=== PATIENT | female | born 1970 | race African-American/Black ===

== ENCOUNTER 2017-05-21 23:21 | Inpatient (IN) ==
[2017-05-22] MEDS ORDERED: methylPREDNISolone SOD SUC 125 MG/2 ML VIAL IV STA (00:11)
[2017-05-22] MEDS ORDERED: FAMOTIDINE 20 MG/2 ML VIAL IV STA (00:11)
[2017-05-22 00:46] LABS: Basophils # 0.1 10*3/uL (0.0-0.2); Basophils % 0.8 % (0.0-0.8); Eosinophils # 0.4 10*3/uL (0.0-0.87); Hematocrit 28.8 VOL% (35.7-47.0); Hemoglobin 8.7 GM/DL (12.0-16.0); Immature Granulocytes % 0.4 %; Immature Granulocytes Absolute 0.03 #; Lymphocytes # 3.2 10*3/uL (1.4-4.0); Lymphocytes % 44.2 % (21.3-54.2); Mean Corpuscular HGB Conc 30.2 GM/DL (32-36); Mean Corpuscular Hemoglobin 24 PG (27-34); Mean Corpuscular Volume 79.8 FL (87-102); Mean Platelet Volume 10.6 FL (9.6-12.0); Monocytes # 0.7 10*3/uL (0.11-0.8); Monocytes % 9.6 % (1.7-12.7); Neutrophils # 2.8 10*3/uL (1.4-7.4); Platelet Count 290 T/CUMM (130-400); Red Blood Count 3.61 MC/CUMM (3.8-5.5); Red Cell Distribution Width 15.3 % (9.3-17.3); White Blood Count 7.2 T/CUMM (4-12)
[2017-05-22 00:53] LABS: INR 0.9; PT Patient Result 9.8 SECS; Partial Thromboplastin Time 21.8 SECS (0-40)
[2017-05-22] MEDS ORDERED: LORazepam 2 MG/1 ML VIAL IV STA (00:55)
[2017-05-22] MEDS ORDERED: FAMOTIDINE 20 MG/2 ML VIAL IV ONE (01:01)
[2017-05-22] MEDS ORDERED: methylPREDNISolone SOD SUC 125 MG/2 ML VIAL ONE (01:01)
[2017-05-22] MEDS ORDERED: LORazepam 2 MG/1 ML VIAL ONE (01:01)
[2017-05-22 01:07] LABS: Alanine Aminotransferase 16 U/L (13-56); Albumin 3.4 G/DL (3.4-5.0); Alkaline Phosphatase 65 U/L (45-117); Aspartate Amino Transferase 23 U/L (0-37); Bilirubin,Total < 0.39 MG/DL (0.2-1.0); Blood Urea Nitrogen 8 MG/DL (7-18); Calcium 8.3 MG/DL (8.5-10.1); Glucose 109 MG/DL (74-106); Osmolality,Calculated 277.4 MOS/KG (273-304); Potassium 3.9 MMOL/L (3.5-5.1); Sodium 140 MMOL/L (136-145); Total Protein 7.4 G/DL (6.4-8.3); Troponin I Only 0.041 NG/ML (0.00-0.045)
[2017-05-22] MEDS ORDERED: ASPIRIN EC 325 MG TABLET PO STA (01:18)
[2017-05-22 01:20] LABS: Apearance,Urine Slightly Hazy (Clear); Bilirubin,Urine Negative (Negative); Blood, Urine Negative (Negative); Glucose,Urine (UA) Negative (Negative); Hyaline Casts,Urine 4 /LPF (0-3); Ketones,Urine Negative (Negative); Mucus,Urine Few /LPF (Occasional); Nitrite,Urine Negative (Negative); Protein,Urine Negative; RBC,Urine 4 /HPF (0-4); Squamous Epithelial Cell,Urine Occasional /HPF (0-10); Urine Color Yellow (Yellow); Urine Specific Gravity 1.015 (1.001-1.035); Urine Urobilinogen < 2.0 EU/DL (0.2-1.0); WBC,Urine 51 /HPF (0-6)
[2017-05-22 02:29] LABS: Barbiturates Screen,Urine Negative (Negative); Benzodiazepines Screen,Urine Negative (Negative); Cannabinoid Screen,Urine Negative (Negative); Opiate Screen,Urine Negative (Negative); Phencyclidine Screen,Urine Negative (Negative)
[2017-05-22] MEDS ORDERED: LABETALOL 20 MG/4 ML SYRINGE IV PRN (02:47)
[2017-05-22] MEDS ORDERED: ONDANSETRON 4 MG/2 ML VIAL IV PRN (03:14)
[2017-05-22] MEDS: SODIUM CHLORIDE 0.9% 1,000 ML IV SCH (04:55)
[2017-05-22] MEDS: LEVOFLOXACIN INJ 750 MG in PREMIX 1 EACH IV SCH (04:55)
[2017-05-22 05:35] LABS: Risk Ratio 5.17; VLDL CHOLESTEROL 32.8 MG/DL
[2017-05-22] MEDS ORDERED: ASPIRIN 325 MG TABLET PO SCH (09:00)
[2017-05-22] MEDS: PANTOPRAZOLE 40 MG VIAL IV SCH (11:12)
[2017-05-22] MEDS: ENOXAPARIN 40 MG/0.4 ML SYRINGE SUBCUT SCH (11:13)
[2017-05-23] MEDS: SODIUM CHLORIDE 0.9% 1,000 ML IV SCH ×3 (00:16→20:33)
[2017-05-23] MEDS: LEVOFLOXACIN INJ 750 MG in PREMIX 1 EACH IV SCH (04:55)
[2017-05-23 06:02] LABS: Basophils % 0.2 % (0.0-0.8); Eosinophils % 0.2 % (0.00-10.9); Hemoglobin 7.8 GM/DL (12.0-16.0); Immature Granulocytes % 0.3 %; Immature Granulocytes Absolute 0.03 #; Lymphocytes # 2.9 10*3/uL (1.4-4.0); Lymphocytes % 29.7 % (21.3-54.2); Mean Corpuscular HGB Conc 31.2 GM/DL (32-36); Mean Corpuscular Hemoglobin 24 PG (27-34); Mean Corpuscular Volume 77.4 FL (87-102); Mean Platelet Volume 10.3 FL (9.6-12.0); Monocytes # 0.9 10*3/uL (0.11-0.8); Monocytes % 9.1 % (1.7-12.7); Neutrophils # 5.9 10*3/uL (1.4-7.4); Neutrophils % 60.5 % (38.7-73.9); Platelet Count 257 T/CUMM (130-400); Red Blood Count 3.23 MC/CUMM (3.8-5.5); Red Cell Distribution Width 15.5 % (9.3-17.3); White Blood Count 9.7 T/CUMM (4-12)
[2017-05-23 06:26] LABS: Osmolality,Calculated 283.1 MOS/KG (273-304); Potassium 3.9 MMOL/L (3.5-5.1)
[2017-05-23] MEDS: PANTOPRAZOLE 40 MG VIAL IV SCH (08:14)
[2017-05-23] MEDS: ASPIRIN 325 MG TABLET PO SCH (08:14)
[2017-05-23] MEDS: ENOXAPARIN 40 MG/0.4 ML SYRINGE SUBCUT SCH (08:14)
[2017-05-23] MEDS: SPIRONOLACTONE 25 MG TABLET PO SCH (09:54)
[2017-05-23] MEDS: LOSARTAN 25 MG TABLET PO SCH (09:54)
[2017-05-23] MEDS: CARVEDILOL 3.125 MG TABLET PO SCH (21:33)
[2017-05-24 05:19] LABS: Basophils % 0.5 % (0.0-0.8); Eosinophils # 0.1 10*3/uL (0.0-0.87); Eosinophils % 1.4 % (0.00-10.9); Hematocrit 24.6 VOL% (35.7-47.0); Hemoglobin 7.5 GM/DL (12.0-16.0); Immature Granulocytes % 0.3 %; Immature Granulocytes Absolute 0.02 #; Lymphocytes # 4.3 10*3/uL (1.4-4.0); Lymphocytes % 55.2 % (21.3-54.2); Mean Corpuscular HGB Conc 30.5 GM/DL (32-36); Mean Corpuscular Hemoglobin 24 PG (27-34); Mean Corpuscular Volume 77.1 FL (87-102); Mean Platelet Volume 10.1 FL (9.6-12.0); Monocytes # 0.6 10*3/uL (0.11-0.8); Monocytes % 7.8 % (1.7-12.7); Neutrophils # 2.7 10*3/uL (1.4-7.4); Neutrophils % 34.8 % (38.7-73.9); Platelet Count 262 T/CUMM (130-400); Red Blood Count 3.19 MC/CUMM (3.8-5.5); Red Cell Distribution Width 15.3 % (9.3-17.3); White Blood Count 7.8 T/CUMM (4-12)
[2017-05-24] MEDS: LEVOFLOXACIN INJ 750 MG in PREMIX 1 EACH IV SCH (05:39)
[2017-05-24 05:52] LABS: Calcium 7.9 MG/DL (8.5-10.1); Osmolality,Calculated 282.1 MOS/KG (273-304); Potassium 3.9 MMOL/L (3.5-5.1)
[2017-05-24 05:53] LABS: Band Neutrophils 1 % (0-10); Eosinophils 1 % (0-10); Hypochromasia 1+; Lymphocytes 55 % (20-55); Metamyelocytes 1 %; Microcytosis 1+; Ovalocytes Slight; Platelet Estimate Normal; Segmented Neutrophils 38 % (50-85); Total Cells Counted 100
[2017-05-24] MEDS: CARVEDILOL 3.125 MG TABLET PO SCH ×2 (08:58→17:48)
[2017-05-24] MEDS: LOSARTAN 25 MG TABLET PO SCH (08:58)
[2017-05-24] MEDS: ENOXAPARIN 40 MG/0.4 ML SYRINGE SUBCUT SCH (08:58)
[2017-05-24] MEDS: ASPIRIN 325 MG TABLET PO SCH (08:58)
[2017-05-24] MEDS: SPIRONOLACTONE 25 MG TABLET PO SCH (08:58)
[2017-05-24] MEDS: PANTOPRAZOLE 40 MG VIAL IV SCH (08:58)
[2017-05-24] MEDS: PANTOPRAZOLE 40 MG TABLET PO SCH (11:24)
[2017-05-25] MEDS: SODIUM CHLORIDE 0.9% 1,000 ML IV SCH ×2 (00:15→00:16)
[2017-05-25] MEDS: LEVOFLOXACIN INJ 750 MG in PREMIX 1 EACH IV SCH (06:01)
[2017-05-25] MEDS ORDERED: SODIUM CHLORIDE 0.9% 1,000 ML IV PRN (07:48)
[2017-05-25 09:01] LABS: Basophils % 0.3 % (0.0-0.8); Eosinophils # 0.2 10*3/uL (0.0-0.87); Eosinophils % 2.8 % (0.00-10.9); Hematocrit 24.2 VOL% (35.7-47.0); Hemoglobin 7.5 GM/DL (12.0-16.0); Immature Granulocytes % 0.5 %; Immature Granulocytes Absolute 0.03 #; Lymphocytes # 3.2 10*3/uL (1.4-4.0); Mean Corpuscular Hemoglobin 24 PG (27-34); Mean Corpuscular Volume 78.3 FL (87-102); Mean Platelet Volume 10.8 FL (9.6-12.0); Monocytes # 0.6 10*3/uL (0.11-0.8); Neutrophils # 1.9 10*3/uL (1.4-7.4); Neutrophils % 32.4 % (38.7-73.9); Platelet Count 271 T/CUMM (130-400); Red Blood Count 3.09 MC/CUMM (3.8-5.5); Red Cell Distribution Width 15.4 % (9.3-17.3)
[2017-05-25] MEDS: ENOXAPARIN 40 MG/0.4 ML SYRINGE SUBCUT SCH (09:07)
[2017-05-25] MEDS ORDERED: LEVOFLOXACIN 750 MG TABLET PO ONE (09:09)
[2017-05-25] MEDS: CARVEDILOL 3.125 MG TABLET PO SCH ×2 (09:14→17:42)
[2017-05-25] MEDS: SPIRONOLACTONE 25 MG TABLET PO SCH (09:15)
[2017-05-25] MEDS: ASPIRIN 325 MG TABLET PO SCH (09:15)
[2017-05-25] MEDS: LOSARTAN 25 MG TABLET PO SCH (09:15)
[2017-05-25] MEDS: PANTOPRAZOLE 40 MG TABLET PO SCH (09:15)
[2017-05-25 09:24] LABS: Eosinophils 2 % (0-10); Giant Platelets Few; Hypochromasia 1+; Lymphocytes 54 % (20-55); Microcytosis Slight; Ovalocytes Slight; Platelet Estimate Adequate; Segmented Neutrophils 30 % (50-85); Total Cells Counted 100
[2017-05-25] MEDS ORDERED: SODIUM CHLORIDE 0.9% 1,000 ML IV SCH (09:30)
[2017-05-25] MEDS: LEVOFLOXACIN 750 MG TABLET PO SCH (12:35)
[2017-05-25] MEDS ORDERED: diphenhydrAMINE CAP 25 MG CAPSULE PO ONE (15:04)
[2017-05-25] MEDS ORDERED: methylPREDNISolone SOD SUC 40 MG/1 ML VIAL IV ONE (15:05)
[2017-05-25 17:05] LABS: Hematocrit 29.9 VOL% (35.7-47.0)
[2017-05-25 17:09] LABS: Hemoglobin 9.4 GM/DL (12.0-16.0)
[2017-05-26 08:05] VITALS: BP 133/62
[2017-05-26] MEDS: ASPIRIN 325 MG TABLET PO SCH (09:43)
[2017-05-26] MEDS: CARVEDILOL 3.125 MG TABLET PO SCH (09:43)
[2017-05-26] MEDS: PANTOPRAZOLE 40 MG TABLET PO SCH (09:44)
[2017-05-26] MEDS: SPIRONOLACTONE 25 MG TABLET PO SCH (09:44)
[2017-05-26] MEDS: LOSARTAN 25 MG TABLET PO SCH (09:44)
[2017-05-26] MEDS: ENOXAPARIN 40 MG/0.4 ML SYRINGE SUBCUT SCH (09:44)
[2017-05-26] MEDS: LEVOFLOXACIN 750 MG TABLET PO SCH (09:44)
== END 2017-05-26 10:57 | disposition home or self-care (01) | DRG 880 ==
LOC: EDBD → EDUNIT# → N.ED 23:21 → N.EDINP 05-22 02:45 → N.TELEN 05-22 03:54

== ENCOUNTER 2017-10-04 20:23 | Inpatient (IN) ==
[2017-10-04] MEDS ORDERED: ASPIRIN 300 MG SUPP RECTAL STA (20:51)
[2017-10-04] MEDS ORDERED: ONDANSETRON 4 MG/2 ML VIAL IV STA (20:51)
[2017-10-04] MEDS ORDERED: LABETALOL 20 MG/4 ML SYRINGE IV STA (20:51)
[2017-10-04] MEDS ORDERED: LABETALOL 20 MG/4 ML SYRINGE IV PRN (21:13)
[2017-10-04] MEDS ORDERED: ALTEPLASE 9 MG in PREMIX 1 EACH IV ONE (21:13)
[2017-10-04] MEDS ORDERED: niCARdipine INJ 25 MG in SODIUM CHLORIDE 0.9% 240 ML IV PRN (21:13)
[2017-10-04] MEDS ORDERED: ALTEPLASE 81 MG in PREMIX 1 EACH IV ONE (21:13)
[2017-10-04 21:17] LABS: Basophils # 0.1 10*3/uL (0.0-0.2); Basophils % 0.4 % (0.0-0.8); Eosinophils # 0.3 10*3/uL (0.0-0.87); Eosinophils % 2.9 % (0.00-10.9); Hematocrit 26.6 VOL% (35.7-47.0); Immature Granulocytes % 0.4 %; Immature Granulocytes Absolute 0.04 #; Lymphocytes # 3.9 10*3/uL (1.4-4.0); Lymphocytes % 34.6 % (21.3-54.2); Mean Corpuscular HGB Conc 30.1 GM/DL (32-36); Mean Corpuscular Hemoglobin 24 PG (27-34); Mean Corpuscular Volume 80.4 FL (87-102); Mean Platelet Volume 10.3 FL (9.6-12.0); Monocytes % 8.9 % (1.7-12.7); Neutrophils # 5.9 10*3/uL (1.4-7.4); Neutrophils % 52.8 % (38.7-73.9); Platelet Count 299 T/CUMM (130-400); Red Blood Count 3.31 MC/CUMM (3.8-5.5); Red Cell Distribution Width 15.7 % (9.3-17.3); White Blood Count 11.3 T/CUMM (4-12)
[2017-10-04 21:26] LABS: PT Patient Result 10.2 SECS; Partial Thromboplastin Time 23.8 SECS (0-40)
[2017-10-04 21:30] LABS: Alanine Aminotransferase 12 U/L (13-56); Albumin 3.4 G/DL (3.4-5.0); Alkaline Phosphatase 60 U/L (45-117); Aspartate Amino Transferase 23 U/L (0-37); Bilirubin,Total < 0.39 MG/DL (0.2-1.0); Blood Urea Nitrogen 10 MG/DL (7-18); Calcium 8.5 MG/DL (8.5-10.1); Glucose 99 MG/DL (74-106); Potassium 3.8 MMOL/L (3.5-5.1); Sodium 143 MMOL/L (136-145); Total Protein 7.7 G/DL (6.4-8.3)
[2017-10-04 21:45] LABS: Apearance,Urine Slightly Hazy (Clear); Bacteria,Urine Occasional /HPF (Few); Bilirubin,Urine Negative (Negative); Blood, Urine Negative (Negative); Glucose,Urine (UA) Negative (Negative); Ketones,Urine Negative (Negative); Mucus,Urine Few /LPF (Occasional); Nitrite,Urine Negative (Negative); Protein,Urine Negative; RBC,Urine 5 /HPF (0-4); Squamous Epithelial Cell,Urine Occasional /HPF (0-10); Urine Color Yellow (Yellow); Urine Specific Gravity 1.018 (1.001-1.035); Urine Urobilinogen < 2.0 EU/DL (0.2-1.0); WBC,Urine 23 /HPF (0-6)
[2017-10-04 21:51] LABS: Barbiturates Screen,Urine Negative (Negative); Benzodiazepines Screen,Urine Negative (Negative); Cannabinoid Screen,Urine Negative (Negative); Opiate Screen,Urine Negative (Negative); Phencyclidine Screen,Urine Negative (Negative)
[2017-10-04] MEDS ORDERED: ONDANSETRON 4 MG/2 ML VIAL IV PRN (23:41)
[2017-10-04] MEDS ORDERED: ALBUTEROL 2.5 MG/3 ML NEB RESP TX PRN (23:41)
[2017-10-05] MEDS: SODIUM CHLORIDE 0.9% 1,000 ML IV SCH ×2 (01:30→23:14)
[2017-10-05] MEDS: LEVOFLOXACIN INJ 250 MG in PREMIX 1 EACH IV SCH ×2 (02:35→23:57)
[2017-10-05] MEDS: PANTOPRAZOLE 40 MG VIAL IV SCH (08:49)
[2017-10-05] MEDS: MORPHINE 4 MG/1 ML VIAL IV PRN ×2 (17:09→23:56)
[2017-10-05] MEDS: CYCLOBENZAPRINE 10 MG TABLET PO PRN (18:51)
[2017-10-05] MEDS: TOPIRAMATE 25 MG TABLET PO SCH (21:35)
[2017-10-05] MEDS: GABAPENTIN 300 MG CAPSULE PO SCH (21:35)
[2017-10-05 23:14] LABS: Basophils % 0.4 % (0.0-0.8); Eosinophils # 0.3 10*3/uL (0.0-0.87); Eosinophils % 3.4 % (0.00-10.9); Hematocrit 24.6 VOL% (35.7-47.0); Hemoglobin 7.3 GM/DL (12.0-16.0); Immature Granulocytes % 0.4 %; Immature Granulocytes Absolute 0.03 #; Lymphocytes % 38.9 % (21.3-54.2); Mean Corpuscular HGB Conc 29.7 GM/DL (32-36); Mean Corpuscular Hemoglobin 24 PG (27-34); Mean Corpuscular Volume 80.4 FL (87-102); Mean Platelet Volume 9.7 FL (9.6-12.0); Monocytes # 0.7 10*3/uL (0.11-0.8); Monocytes % 8.9 % (1.7-12.7); Neutrophils # 3.7 10*3/uL (1.4-7.4); Platelet Count 253 T/CUMM (130-400); Red Blood Count 3.06 MC/CUMM (3.8-5.5); Red Cell Distribution Width 15.8 % (9.3-17.3); White Blood Count 7.7 T/CUMM (4-12)
[2017-10-05] MEDS ORDERED: ASPIRIN 300 MG SUPP RECTAL SCH (23:48)
[2017-10-05 23:49] LABS: Calcium 8.5 MG/DL (8.5-10.1); Potassium 3.5 MMOL/L (3.5-5.1)
[2017-10-05 23:51] LABS: Risk Ratio 3.41; VLDL CHOLESTEROL 29.8 MG/DL
[2017-10-05] MEDS: ASPIRIN 325 MG TABLET PO SCH (23:55)
[2017-10-06] MEDS: GABAPENTIN 300 MG CAPSULE PO SCH ×2 (08:27→21:16)
[2017-10-06] MEDS: CLOPIDOGREL 75 MG TABLET PO SCH (08:27)
[2017-10-06] MEDS: ASPIRIN 325 MG TABLET PO SCH (08:28)
[2017-10-06] MEDS: PANTOPRAZOLE 40 MG VIAL IV SCH (08:28)
[2017-10-06] MEDS: TOPIRAMATE 25 MG TABLET PO SCH ×2 (08:28→21:16)
[2017-10-06] MEDS: MORPHINE 4 MG/1 ML VIAL IV PRN ×4 (09:05→23:29)
[2017-10-06] MEDS: PANTOPRAZOLE 40 MG TABLET PO SCH (14:04)
[2017-10-06] MEDS: ERYTHROMYCIN 0.5% OPHT OINT 1 GM TUBE LEFT EYE SCH ×3 (15:22→21:15)
[2017-10-06] MEDS: SODIUM CHLORIDE 0.9% 1,000 ML IV SCH ×2 (17:38→23:28)
[2017-10-06] MEDS: CYCLOBENZAPRINE 10 MG TABLET PO PRN (23:31)
[2017-10-06] MEDS: LEVOFLOXACIN INJ 250 MG in PREMIX 1 EACH IV SCH (23:35)
[2017-10-07] MEDS ORDERED: ACETAMINOPHEN 325 MG TABLET PO PRN (02:03)
[2017-10-07] MEDS: MORPHINE 4 MG/1 ML VIAL IV PRN ×3 (04:45→20:18)
[2017-10-07 06:16] LABS: Basophils % 0.6 % (0.0-0.8); Eosinophils # 0.3 10*3/uL (0.0-0.87); Eosinophils % 3.8 % (0.00-10.9); Hematocrit 24.2 VOL% (35.7-47.0); Hemoglobin 7.2 GM/DL (12.0-16.0); Immature Granulocytes % 0.4 %; Immature Granulocytes Absolute 0.03 #; Lymphocytes # 3.2 10*3/uL (1.4-4.0); Lymphocytes % 45.6 % (21.3-54.2); Mean Corpuscular HGB Conc 29.8 GM/DL (32-36); Mean Corpuscular Hemoglobin 24 PG (27-34); Mean Corpuscular Volume 81.5 FL (87-102); Mean Platelet Volume 10.7 FL (9.6-12.0); Monocytes # 0.6 10*3/uL (0.11-0.8); Monocytes % 9.1 % (1.7-12.7); Neutrophils # 2.8 10*3/uL (1.4-7.4); Neutrophils % 40.5 % (38.7-73.9); Platelet Count 288 T/CUMM (130-400); Red Blood Count 2.97 MC/CUMM (3.8-5.5); Red Cell Distribution Width 15.6 % (9.3-17.3); White Blood Count 6.9 T/CUMM (4-12)
[2017-10-07 06:40] LABS: Calcium 8.8 MG/DL (8.5-10.1); Osmolality,Calculated 280.1 MOS/KG (273-304); Potassium 3.5 MMOL/L (3.5-5.1)
[2017-10-07] MEDS ORDERED: SODIUM CHLORIDE 0.9% 1,000 ML IV PRN (08:24)
[2017-10-07] MEDS: ERYTHROMYCIN 0.5% OPHT OINT 1 GM TUBE LEFT EYE SCH ×4 (09:48→20:08)
[2017-10-07] MEDS: TOPIRAMATE 25 MG TABLET PO SCH ×2 (10:09→20:17)
[2017-10-07] MEDS: ASPIRIN 325 MG TABLET PO SCH (10:09)
[2017-10-07] MEDS: CLOPIDOGREL 75 MG TABLET PO SCH (10:09)
[2017-10-07] MEDS: PANTOPRAZOLE 40 MG TABLET PO SCH (10:09)
[2017-10-07] MEDS: GABAPENTIN 300 MG CAPSULE PO SCH ×2 (10:09→20:17)
[2017-10-07] MEDS: ATORVASTATIN 40 MG TABLET PO SCH (20:17)
[2017-10-07] MEDS: CYCLOBENZAPRINE 10 MG TABLET PO PRN (20:18)
[2017-10-07] MEDS: SODIUM CHLORIDE 0.9% 1,000 ML IV SCH ×2 (20:24→20:25)
[2017-10-08] MEDS: MORPHINE 4 MG/1 ML VIAL IV PRN ×3 (05:35→19:07)
[2017-10-08 05:52] LABS: Basophils % 0.4 % (0.0-0.8); Eosinophils # 0.3 10*3/uL (0.0-0.87); Eosinophils % 4.5 % (0.00-10.9); Hematocrit 24.4 VOL% (35.7-47.0); Hemoglobin 7.5 GM/DL (12.0-16.0); Immature Granulocytes % 0.3 %; Immature Granulocytes Absolute 0.02 #; Lymphocytes # 2.7 10*3/uL (1.4-4.0); Lymphocytes % 40.8 % (21.3-54.2); Mean Corpuscular HGB Conc 30.7 GM/DL (32-36); Mean Corpuscular Hemoglobin 25 PG (27-34); Mean Corpuscular Volume 79.7 FL (87-102); Mean Platelet Volume 10.3 FL (9.6-12.0); Monocytes # 0.6 10*3/uL (0.11-0.8); Monocytes % 9.4 % (1.7-12.7); Neutrophils % 44.6 % (38.7-73.9); Platelet Count 276 T/CUMM (130-400); Red Blood Count 3.06 MC/CUMM (3.8-5.5); Red Cell Distribution Width 15.6 % (9.3-17.3); White Blood Count 6.7 T/CUMM (4-12)
[2017-10-08 06:21] LABS: Calcium 8.2 MG/DL (8.5-10.1); Potassium 3.5 MMOL/L (3.5-5.1)
[2017-10-08 08:59] LABS: % Iron Saturation 5.4 % (18-50); Ferritin 5.4 ng/ml (8-252)
[2017-10-08 09:27] LABS: Folate 7.8 NG/ML (5.4-24.0)
[2017-10-08] MEDS: ERYTHROMYCIN 0.5% OPHT OINT 1 GM TUBE LEFT EYE SCH ×3 (10:13→16:15)
[2017-10-08] MEDS: CLOPIDOGREL 75 MG TABLET PO SCH (10:18)
[2017-10-08] MEDS: ASPIRIN 325 MG TABLET PO SCH (10:18)
[2017-10-08] MEDS: GABAPENTIN 300 MG CAPSULE PO SCH ×2 (10:18→21:32)
[2017-10-08] MEDS: PANTOPRAZOLE 40 MG TABLET PO SCH (10:18)
[2017-10-08] MEDS: LOSARTAN 25 MG TABLET PO SCH (10:19)
[2017-10-08] MEDS: TOPIRAMATE 25 MG TABLET PO SCH ×2 (10:19→21:32)
[2017-10-08] MEDS: CARVEDILOL 3.125 MG TABLET PO SCH ×2 (10:19→21:32)
[2017-10-08] MEDS: POLYETHYLENE GLYCOL POWDER 17 GM PACK PO SCH (13:08)
[2017-10-08] MEDS: FERROUS SULFATE 325 MG TABLET PO SCH ×2 (13:08→21:32)
[2017-10-08] MEDS: SODIUM CHLORIDE 0.9% 1,000 ML IV SCH (15:39)
[2017-10-08] MEDS: ATORVASTATIN 40 MG TABLET PO SCH (21:32)
[2017-10-09] MEDS: MORPHINE 4 MG/1 ML VIAL IV PRN ×4 (00:31→21:19)
[2017-10-09] MEDS: CYCLOBENZAPRINE 10 MG TABLET PO PRN ×3 (02:50→21:16)
[2017-10-09] MEDS: ERYTHROMYCIN 0.5% OPHT OINT 1 GM TUBE LEFT EYE SCH ×5 (07:29→21:16)
[2017-10-09] MEDS: SODIUM CHLORIDE 0.9% 1,000 ML IV SCH ×2 (07:29→12:51)
[2017-10-09] MEDS: LOSARTAN 25 MG TABLET PO SCH (08:17)
[2017-10-09] MEDS: ASPIRIN 325 MG TABLET PO SCH (08:17)
[2017-10-09] MEDS: CLOPIDOGREL 75 MG TABLET PO SCH (08:17)
[2017-10-09] MEDS: TOPIRAMATE 25 MG TABLET PO SCH ×2 (08:17→21:16)
[2017-10-09] MEDS: CARVEDILOL 3.125 MG TABLET PO SCH ×2 (08:17→21:15)
[2017-10-09] MEDS: FERROUS SULFATE 325 MG TABLET PO SCH ×2 (08:17→21:16)
[2017-10-09] MEDS: PANTOPRAZOLE 40 MG TABLET PO SCH (08:17)
[2017-10-09] MEDS: GABAPENTIN 300 MG CAPSULE PO SCH ×2 (08:17→21:15)
[2017-10-09] MEDS: POLYETHYLENE GLYCOL POWDER 17 GM PACK PO SCH (08:17)
[2017-10-09 13:25] LABS: DRVVT Screen Ratio 0.9 ratio (0.0 - 1.1)
[2017-10-09] MEDS: ATORVASTATIN 40 MG TABLET PO SCH (21:16)
[2017-10-10] MEDS: MORPHINE 4 MG/1 ML VIAL IV PRN ×4 (00:56→23:31)
[2017-10-10 06:38] LABS: Basophils % 0.5 % (0.0-0.8); Eosinophils # 0.5 10*3/uL (0.0-0.87); Eosinophils % 5.7 % (0.00-10.9); Hematocrit 25.7 VOL% (35.7-47.0); Hemoglobin 7.9 GM/DL (12.0-16.0); Immature Granulocytes % 0.5 %; Immature Granulocytes Absolute 0.04 #; Lymphocytes # 2.9 10*3/uL (1.4-4.0); Lymphocytes % 36.8 % (21.3-54.2); Mean Corpuscular HGB Conc 30.7 GM/DL (32-36); Mean Corpuscular Hemoglobin 25 PG (27-34); Mean Corpuscular Volume 79.6 FL (87-102); Mean Platelet Volume 10.6 FL (9.6-12.0); Monocytes # 0.8 10*3/uL (0.11-0.8); Monocytes % 10.1 % (1.7-12.7); NRBC # 0.02 10*3/uL; Neutrophils # 3.7 10*3/uL (1.4-7.4); Neutrophils % 46.4 % (38.7-73.9); Platelet Count 292 T/CUMM (130-400); Red Blood Count 3.23 MC/CUMM (3.8-5.5); Red Cell Distribution Width 15.8 % (9.3-17.3); White Blood Count 7.9 T/CUMM (4-12)
[2017-10-10 06:54] LABS: Calcium 8.2 MG/DL (8.5-10.1); Osmolality,Calculated 280.1 MOS/KG (273-304); Potassium 3.8 MMOL/L (3.5-5.1)
[2017-10-10] MEDS: CARVEDILOL 3.125 MG TABLET PO SCH ×2 (09:55→20:39)
[2017-10-10] MEDS: TOPIRAMATE 25 MG TABLET PO SCH ×2 (09:55→20:40)
[2017-10-10] MEDS: CLOPIDOGREL 75 MG TABLET PO SCH (09:56)
[2017-10-10] MEDS: FERROUS SULFATE 325 MG TABLET PO SCH ×2 (09:56→20:39)
[2017-10-10] MEDS: LOSARTAN 25 MG TABLET PO SCH (09:56)
[2017-10-10] MEDS: PANTOPRAZOLE 40 MG TABLET PO SCH (09:56)
[2017-10-10] MEDS: GABAPENTIN 300 MG CAPSULE PO SCH ×2 (09:56→20:40)
[2017-10-10] MEDS: ASPIRIN 325 MG TABLET PO SCH (09:56)
[2017-10-10] MEDS: POLYETHYLENE GLYCOL POWDER 17 GM PACK PO SCH (09:56)
[2017-10-10] MEDS: SODIUM CHLORIDE 0.9% 1,000 ML IV SCH (10:14)
[2017-10-10] MEDS: ERYTHROMYCIN 0.5% OPHT OINT 1 GM TUBE LEFT EYE SCH ×4 (10:19→20:41)
[2017-10-10] MEDS ORDERED: LACTULOSE 20 GM/30 ML UDCUP PO PRN (16:32)
[2017-10-10] MEDS: ATORVASTATIN 40 MG TABLET PO SCH (20:39)
[2017-10-10] MEDS: CYCLOBENZAPRINE 10 MG TABLET PO PRN (21:12)
[2017-10-11] MEDS: MORPHINE 4 MG/1 ML VIAL IV PRN ×3 (03:05→19:30)
[2017-10-11] MEDS: CYCLOBENZAPRINE 10 MG TABLET PO PRN ×3 (04:55→19:27)
[2017-10-11] MEDS: SODIUM CHLORIDE 0.9% 1,000 ML IV SCH ×2 (07:29→16:55)
[2017-10-11] MEDS: TOPIRAMATE 25 MG TABLET PO SCH ×2 (09:23→20:01)
[2017-10-11] MEDS: LOSARTAN 25 MG TABLET PO SCH (09:23)
[2017-10-11] MEDS: ASPIRIN 325 MG TABLET PO SCH (09:23)
[2017-10-11] MEDS: FERROUS SULFATE 325 MG TABLET PO SCH ×2 (09:23→20:01)
[2017-10-11] MEDS: CLOPIDOGREL 75 MG TABLET PO SCH (09:23)
[2017-10-11] MEDS: POLYETHYLENE GLYCOL POWDER 17 GM PACK PO SCH (09:24)
[2017-10-11] MEDS: PANTOPRAZOLE 40 MG TABLET PO SCH (09:24)
[2017-10-11] MEDS: ERYTHROMYCIN 0.5% OPHT OINT 1 GM TUBE LEFT EYE SCH ×4 (09:24→20:01)
[2017-10-11] MEDS: GABAPENTIN 300 MG CAPSULE PO SCH ×2 (09:24→20:01)
[2017-10-11] MEDS: CARVEDILOL 3.125 MG TABLET PO SCH ×2 (09:24→20:00)
[2017-10-11] MEDS: ATORVASTATIN 40 MG TABLET PO SCH (20:01)
[2017-10-12] MEDS: SODIUM CHLORIDE 0.9% 1,000 ML IV SCH (03:24)
[2017-10-12] MEDS: CYCLOBENZAPRINE 10 MG TABLET PO PRN (04:25)
[2017-10-12] MEDS: MORPHINE 4 MG/1 ML VIAL IV PRN ×4 (04:25→22:47)
[2017-10-12 04:54] LABS: Basophils % 0.4 % (0.0-0.8); Eosinophils # 0.4 10*3/uL (0.0-0.87); Eosinophils % 5.7 % (0.00-10.9); Hematocrit 25.9 VOL% (35.7-47.0); Hemoglobin 7.7 GM/DL (12.0-16.0); Immature Granulocytes % 0.5 %; Immature Granulocytes Absolute 0.04 #; Lymphocytes # 2.8 10*3/uL (1.4-4.0); Lymphocytes % 36.7 % (21.3-54.2); Mean Corpuscular HGB Conc 29.7 GM/DL (32-36); Mean Corpuscular Hemoglobin 24 PG (27-34); Mean Corpuscular Volume 81.7 FL (87-102); Mean Platelet Volume 10.5 FL (9.6-12.0); Monocytes # 0.8 10*3/uL (0.11-0.8); Monocytes % 10.3 % (1.7-12.7); Neutrophils # 3.5 10*3/uL (1.4-7.4); Neutrophils % 46.4 % (38.7-73.9); Platelet Count 277 T/CUMM (130-400); Red Blood Count 3.17 MC/CUMM (3.8-5.5); White Blood Count 7.6 T/CUMM (4-12)
[2017-10-12 05:12] LABS: Calcium 7.8 MG/DL (8.5-10.1); Osmolality,Calculated 279.3 MOS/KG (273-304); Potassium 3.9 MMOL/L (3.5-5.1)
[2017-10-12] MEDS ORDERED: SODIUM CHLORIDE 0.9% 1,000 ML IV PRN (07:13)
[2017-10-12] MEDS: FERROUS SULFATE 325 MG TABLET PO SCH ×2 (08:55→21:07)
[2017-10-12] MEDS: POLYETHYLENE GLYCOL POWDER 17 GM PACK PO SCH (08:55)
[2017-10-12] MEDS: ASPIRIN 325 MG TABLET PO SCH (08:56)
[2017-10-12] MEDS: TOPIRAMATE 25 MG TABLET PO SCH ×2 (08:56→21:07)
[2017-10-12] MEDS: GABAPENTIN 300 MG CAPSULE PO SCH ×2 (08:56→21:07)
[2017-10-12] MEDS: LOSARTAN 25 MG TABLET PO SCH (08:56)
[2017-10-12] MEDS: PANTOPRAZOLE 40 MG TABLET PO SCH (08:56)
[2017-10-12] MEDS: CLOPIDOGREL 75 MG TABLET PO SCH (08:56)
[2017-10-12] MEDS: CARVEDILOL 3.125 MG TABLET PO SCH ×2 (08:56→21:08)
[2017-10-12] MEDS: ERYTHROMYCIN 0.5% OPHT OINT 1 GM TUBE LEFT EYE SCH ×4 (09:01→21:09)
[2017-10-12] MEDS: ATORVASTATIN 40 MG TABLET PO SCH (21:08)
[2017-10-13] MEDS: MORPHINE 4 MG/1 ML VIAL IV PRN ×3 (03:44→19:54)
[2017-10-13 07:40] LABS: Basophils # 0.1 10*3/uL (0.0-0.2); Basophils % 0.6 % (0.0-0.8); Eosinophils # 0.4 10*3/uL (0.0-0.87); Eosinophils % 5.3 % (0.00-10.9); Hematocrit 34.2 VOL% (35.7-47.0); Immature Granulocytes % 0.4 %; Immature Granulocytes Absolute 0.03 #; Lymphocytes # 2.7 10*3/uL (1.4-4.0); Lymphocytes % 34.6 % (21.3-54.2); Mean Corpuscular HGB Conc 31.9 GM/DL (32-36); Mean Corpuscular Hemoglobin 26 PG (27-34); Mean Corpuscular Volume 81.8 FL (87-102); Mean Platelet Volume 10.2 FL (9.6-12.0); Monocytes # 0.8 10*3/uL (0.11-0.8); Monocytes % 9.8 % (1.7-12.7); Neutrophils # 3.8 10*3/uL (1.4-7.4); Neutrophils % 49.3 % (38.7-73.9); Platelet Count 270 T/CUMM (130-400); Red Cell Distribution Width 17.3 % (9.3-17.3); White Blood Count 7.8 T/CUMM (4-12)
[2017-10-13 07:51] LABS: Red Blood Count 4.18 MC/CUMM (3.8-5.5)
[2017-10-13 07:52] LABS: Hemoglobin 10.9 GM/DL (12.0-16.0)
[2017-10-13 07:53] LABS: Alanine Aminotransferase 18 U/L (13-56); Albumin 3.2 G/DL (3.4-5.0); Alkaline Phosphatase 59 U/L (45-117); Aspartate Amino Transferase 22 U/L (0-37); Bilirubin,Total < 0.39 MG/DL (0.2-1.0); Blood Urea Nitrogen 7 MG/DL (7-18); Calcium 8.5 MG/DL (8.5-10.1); Glucose 93 MG/DL (74-106); Osmolality,Calculated 278.3 MOS/KG (273-304); Potassium 3.9 MMOL/L (3.5-5.1); Sodium 141 MMOL/L (136-145); Total Protein 7.3 G/DL (6.4-8.3)
[2017-10-13] MEDS: CLOPIDOGREL 75 MG TABLET PO SCH (09:11)
[2017-10-13] MEDS: CARVEDILOL 3.125 MG TABLET PO SCH ×2 (09:11→21:08)
[2017-10-13] MEDS: GABAPENTIN 300 MG CAPSULE PO SCH ×2 (09:11→21:08)
[2017-10-13] MEDS: ASPIRIN 325 MG TABLET PO SCH (09:11)
[2017-10-13] MEDS: PANTOPRAZOLE 40 MG TABLET PO SCH (09:11)
[2017-10-13] MEDS: TOPIRAMATE 25 MG TABLET PO SCH ×2 (09:11→21:08)
[2017-10-13] MEDS: POLYETHYLENE GLYCOL POWDER 17 GM PACK PO SCH (09:12)
[2017-10-13] MEDS: LOSARTAN 25 MG TABLET PO SCH (09:12)
[2017-10-13] MEDS: FERROUS SULFATE 325 MG TABLET PO SCH ×2 (09:12→21:09)
[2017-10-13] MEDS: ERYTHROMYCIN 0.5% OPHT OINT 1 GM TUBE LEFT EYE SCH ×4 (09:13→21:18)
[2017-10-13] MEDS: ATORVASTATIN 40 MG TABLET PO SCH (21:09)
[2017-10-14] MEDS: MORPHINE 4 MG/1 ML VIAL IV PRN ×5 (00:25→23:55)
[2017-10-14 05:41] LABS: Basophils % 0.5 % (0.0-0.8); Eosinophils # 0.4 10*3/uL (0.0-0.87); Eosinophils % 4.3 % (0.00-10.9); Hematocrit 33.5 VOL% (35.7-47.0); Hemoglobin 10.7 GM/DL (12.0-16.0); Immature Granulocytes % 0.2 %; Immature Granulocytes Absolute 0.02 #; Lymphocytes # 2.8 10*3/uL (1.4-4.0); Mean Corpuscular HGB Conc 31.9 GM/DL (32-36); Mean Corpuscular Hemoglobin 26 PG (27-34); Mean Corpuscular Volume 82.1 FL (87-102); Mean Platelet Volume 10.2 FL (9.6-12.0); Monocytes # 0.8 10*3/uL (0.11-0.8); Monocytes % 8.7 % (1.7-12.7); Neutrophils # 4.8 10*3/uL (1.4-7.4); Neutrophils % 54.3 % (38.7-73.9); Platelet Count 255 T/CUMM (130-400); Red Blood Count 4.08 MC/CUMM (3.8-5.5); Red Cell Distribution Width 17.5 % (9.3-17.3); White Blood Count 8.8 T/CUMM (4-12)
[2017-10-14 06:11] LABS: Alanine Aminotransferase 20 U/L (13-56); Alkaline Phosphatase 56 U/L (45-117); Aspartate Amino Transferase 24 U/L (0-37); Bilirubin,Total < 0.39 MG/DL (0.2-1.0); Blood Urea Nitrogen 8 MG/DL (7-18); Calcium 8.6 MG/DL (8.5-10.1); Glucose 155 MG/DL (74-106); Sodium 143 MMOL/L (136-145); Total Protein 7.1 G/DL (6.4-8.3)
[2017-10-14] MEDS: ASPIRIN 325 MG TABLET PO SCH (10:01)
[2017-10-14] MEDS: GABAPENTIN 300 MG CAPSULE PO SCH ×2 (10:04→21:35)
[2017-10-14] MEDS: FERROUS SULFATE 325 MG TABLET PO SCH ×2 (10:04→21:36)
[2017-10-14] MEDS: CLOPIDOGREL 75 MG TABLET PO SCH (10:04)
[2017-10-14] MEDS: CARVEDILOL 3.125 MG TABLET PO SCH ×2 (10:04→21:36)
[2017-10-14] MEDS: TOPIRAMATE 25 MG TABLET PO SCH ×2 (10:05→21:35)
[2017-10-14] MEDS: LOSARTAN 25 MG TABLET PO SCH (10:06)
[2017-10-14] MEDS: PANTOPRAZOLE 40 MG TABLET PO SCH (10:06)
[2017-10-14] MEDS: POLYETHYLENE GLYCOL POWDER 17 GM PACK PO SCH (10:10)
[2017-10-14] MEDS: ERYTHROMYCIN 0.5% OPHT OINT 1 GM TUBE LEFT EYE SCH ×4 (10:10→22:10)
[2017-10-14] MEDS: ESCITALOPRAM 10 MG TABLET PO SCH (21:35)
[2017-10-14] MEDS: ATORVASTATIN 40 MG TABLET PO SCH (21:35)
[2017-10-15] MEDS: CYCLOBENZAPRINE 10 MG TABLET PO PRN (02:47)
[2017-10-15] MEDS: MORPHINE 4 MG/1 ML VIAL IV PRN ×5 (04:00→22:56)
[2017-10-15 05:28] LABS: Basophils % 0.4 % (0.0-0.8); Eosinophils # 0.4 10*3/uL (0.0-0.87); Eosinophils % 4.6 % (0.00-10.9); Hematocrit 35.7 VOL% (35.7-47.0); Hemoglobin 10.8 GM/DL (12.0-16.0); Immature Granulocytes % 0.5 %; Immature Granulocytes Absolute 0.04 #; Lymphocytes # 2.9 10*3/uL (1.4-4.0); Lymphocytes % 34.2 % (21.3-54.2); Mean Corpuscular HGB Conc 30.3 GM/DL (32-36); Mean Corpuscular Hemoglobin 26 PG (27-34); Mean Corpuscular Volume 84.2 FL (87-102); Mean Platelet Volume 10.6 FL (9.6-12.0); Monocytes # 0.9 10*3/uL (0.11-0.8); Monocytes % 11.1 % (1.7-12.7); Neutrophils # 4.1 10*3/uL (1.4-7.4); Neutrophils % 49.2 % (38.7-73.9); Platelet Count 267 T/CUMM (130-400); Red Blood Count 4.24 MC/CUMM (3.8-5.5); Red Cell Distribution Width 17.8 % (9.3-17.3); White Blood Count 8.4 T/CUMM (4-12)
[2017-10-15 05:50] LABS: Albumin 3.1 G/DL (3.4-5.0); Bilirubin,Total 0.4 MG/DL (0.2-1.0); Calcium 8.6 MG/DL (8.5-10.1); Osmolality,Calculated 280.1 MOS/KG (273-304); Potassium 3.8 MMOL/L (3.5-5.1); Total Protein 7.1 G/DL (6.4-8.3)
[2017-10-15] MEDS: PANTOPRAZOLE 40 MG TABLET PO SCH (08:39)
[2017-10-15] MEDS: GABAPENTIN 300 MG CAPSULE PO SCH ×2 (08:39→22:06)
[2017-10-15] MEDS: TOPIRAMATE 25 MG TABLET PO SCH ×2 (08:39→22:06)
[2017-10-15] MEDS: CLOPIDOGREL 75 MG TABLET PO SCH (08:39)
[2017-10-15] MEDS: LOSARTAN 25 MG TABLET PO SCH (08:39)
[2017-10-15] MEDS: ASPIRIN 325 MG TABLET PO SCH (08:40)
[2017-10-15] MEDS: CARVEDILOL 3.125 MG TABLET PO SCH ×2 (08:40→22:06)
[2017-10-15] MEDS: FERROUS SULFATE 325 MG TABLET PO SCH ×2 (08:40→22:06)
[2017-10-15] MEDS: POLYETHYLENE GLYCOL POWDER 17 GM PACK PO SCH (08:51)
[2017-10-15] MEDS: ERYTHROMYCIN 0.5% OPHT OINT 1 GM TUBE LEFT EYE SCH ×4 (08:51→22:06)
[2017-10-15] MEDS: ESCITALOPRAM 10 MG TABLET PO SCH (22:05)
[2017-10-15] MEDS: ATORVASTATIN 40 MG TABLET PO SCH (22:06)
[2017-10-16] MEDS: MORPHINE 4 MG/1 ML VIAL IV PRN ×3 (05:39→19:23)
[2017-10-16 06:15] LABS: Basophils # 0.1 10*3/uL (0.0-0.2); Basophils % 0.6 % (0.0-0.8); Eosinophils # 0.4 10*3/uL (0.0-0.87); Eosinophils % 4.8 % (0.00-10.9); Immature Granulocytes % 0.5 %; Immature Granulocytes Absolute 0.04 #; Lymphocytes # 2.9 10*3/uL (1.4-4.0); Lymphocytes % 33.4 % (21.3-54.2); Mean Corpuscular HGB Conc 30.6 GM/DL (32-36); Mean Corpuscular Hemoglobin 26 PG (27-34); Mean Corpuscular Volume 86.1 FL (87-102); Mean Platelet Volume 10.4 FL (9.6-12.0); Monocytes # 0.9 10*3/uL (0.11-0.8); Monocytes % 10.5 % (1.7-12.7); Neutrophils # 4.4 10*3/uL (1.4-7.4); Neutrophils % 50.2 % (38.7-73.9); Platelet Count 248 T/CUMM (130-400); Red Blood Count 4.18 MC/CUMM (3.8-5.5); Red Cell Distribution Width 17.9 % (9.3-17.3); White Blood Count 8.8 T/CUMM (4-12)
[2017-10-16 06:36] LABS: Bilirubin,Total 0.5 MG/DL (0.2-1.0); Calcium 8.4 MG/DL (8.5-10.1); Osmolality,Calculated 286.8 MOS/KG (273-304); Total Protein 7.1 G/DL (6.4-8.3)
[2017-10-16] MEDS: ERYTHROMYCIN 0.5% OPHT OINT 1 GM TUBE LEFT EYE SCH ×4 (10:00→21:47)
[2017-10-16] MEDS: FERROUS SULFATE 325 MG TABLET PO SCH ×2 (10:02→21:46)
[2017-10-16] MEDS: TOPIRAMATE 25 MG TABLET PO SCH ×2 (10:02→21:46)
[2017-10-16] MEDS: ASPIRIN 325 MG TABLET PO SCH (10:02)
[2017-10-16] MEDS: LOSARTAN 25 MG TABLET PO SCH (10:02)
[2017-10-16] MEDS: CARVEDILOL 3.125 MG TABLET PO SCH ×2 (10:02→21:46)
[2017-10-16] MEDS: GABAPENTIN 300 MG CAPSULE PO SCH ×3 (10:02→21:46)
[2017-10-16] MEDS: PANTOPRAZOLE 40 MG TABLET PO SCH (10:02)
[2017-10-16] MEDS: CLOPIDOGREL 75 MG TABLET PO SCH (10:02)
[2017-10-16] MEDS: POLYETHYLENE GLYCOL POWDER 17 GM PACK PO SCH (10:09)
[2017-10-16] MEDS: ESCITALOPRAM 10 MG TABLET PO SCH (21:46)
[2017-10-16] MEDS: CYCLOBENZAPRINE 10 MG TABLET PO PRN (21:46)
[2017-10-16] MEDS: ATORVASTATIN 40 MG TABLET PO SCH (21:46)
[2017-10-17] MEDS: MORPHINE 4 MG/1 ML VIAL IV PRN ×4 (03:12→22:42)
[2017-10-17 04:30] LABS: Basophils % 0.5 % (0.0-0.8); Eosinophils # 0.5 10*3/uL (0.0-0.87); Eosinophils % 5.6 % (0.00-10.9); Hematocrit 34.6 VOL% (35.7-47.0); Hemoglobin 10.8 GM/DL (12.0-16.0); Immature Granulocytes % 0.2 %; Immature Granulocytes Absolute 0.02 #; Lymphocytes # 2.9 10*3/uL (1.4-4.0); Lymphocytes % 35.1 % (21.3-54.2); Mean Corpuscular HGB Conc 31.2 GM/DL (32-36); Mean Corpuscular Hemoglobin 26 PG (27-34); Mean Corpuscular Volume 83.4 FL (87-102); Mean Platelet Volume 10.9 FL (9.6-12.0); Monocytes % 11.9 % (1.7-12.7); Neutrophils # 3.8 10*3/uL (1.4-7.4); Neutrophils % 46.7 % (38.7-73.9); Platelet Count 232 T/CUMM (130-400); Red Blood Count 4.15 MC/CUMM (3.8-5.5); Red Cell Distribution Width 17.9 % (9.3-17.3); White Blood Count 8.2 T/CUMM (4-12)
[2017-10-17 04:56] LABS: Bilirubin,Total 0.6 MG/DL (0.2-1.0); Calcium 8.5 MG/DL (8.5-10.1); Osmolality,Calculated 284.8 MOS/KG (273-304); Potassium 3.9 MMOL/L (3.5-5.1); Total Protein 6.9 G/DL (6.4-8.3)
[2017-10-17] MEDS: GABAPENTIN 300 MG CAPSULE PO SCH ×3 (06:33→22:42)
[2017-10-17] MEDS: ERYTHROMYCIN 0.5% OPHT OINT 1 GM TUBE LEFT EYE SCH ×4 (09:48→20:49)
[2017-10-17] MEDS: LOSARTAN 25 MG TABLET PO SCH (09:49)
[2017-10-17] MEDS: CLOPIDOGREL 75 MG TABLET PO SCH (09:49)
[2017-10-17] MEDS: ASPIRIN 325 MG TABLET PO SCH (09:49)
[2017-10-17] MEDS: CARVEDILOL 3.125 MG TABLET PO SCH ×2 (09:49→20:48)
[2017-10-17] MEDS: PANTOPRAZOLE 40 MG TABLET PO SCH (09:49)
[2017-10-17] MEDS: FERROUS SULFATE 325 MG TABLET PO SCH ×2 (09:49→20:47)
[2017-10-17] MEDS: TOPIRAMATE 25 MG TABLET PO SCH ×2 (09:49→20:47)
[2017-10-17] MEDS: POLYETHYLENE GLYCOL POWDER 17 GM PACK PO SCH (09:50)
[2017-10-17] MEDS: ESCITALOPRAM 10 MG TABLET PO SCH (20:47)
[2017-10-17] MEDS: diphenhydrAMINE CAP 25 MG CAPSULE PO PRN (20:48)
[2017-10-17] MEDS: ATORVASTATIN 40 MG TABLET PO SCH (20:48)
[2017-10-17] MEDS: CYCLOBENZAPRINE 10 MG TABLET PO PRN (20:49)
[2017-10-18] MEDS: GABAPENTIN 300 MG CAPSULE PO SCH ×3 (06:44→21:29)
[2017-10-18] MEDS: MORPHINE 4 MG/1 ML VIAL IV PRN ×3 (06:44→19:36)
[2017-10-18] MEDS: ERYTHROMYCIN 0.5% OPHT OINT 1 GM TUBE LEFT EYE SCH ×4 (07:30→21:30)
[2017-10-18] MEDS: PANTOPRAZOLE 40 MG TABLET PO SCH (10:22)
[2017-10-18] MEDS: FERROUS SULFATE 325 MG TABLET PO SCH ×2 (10:22→21:28)
[2017-10-18] MEDS: TOPIRAMATE 25 MG TABLET PO SCH ×2 (10:22→21:28)
[2017-10-18] MEDS: CLOPIDOGREL 75 MG TABLET PO SCH (10:22)
[2017-10-18] MEDS: ASPIRIN 325 MG TABLET PO SCH (10:22)
[2017-10-18] MEDS: LOSARTAN 25 MG TABLET PO SCH (10:22)
[2017-10-18] MEDS: CARVEDILOL 3.125 MG TABLET PO SCH ×2 (10:23→21:29)
[2017-10-18] MEDS: POLYETHYLENE GLYCOL POWDER 17 GM PACK PO SCH (10:23)
[2017-10-18] MEDS: HYDROCORTISONE 0.5% CREAM 28.35 GM TUBE TOP PRN ×2 (11:10→21:30)
[2017-10-18] MEDS: diphenhydrAMINE CAP 25 MG CAPSULE PO PRN ×2 (13:43→21:29)
[2017-10-18] MEDS: ESCITALOPRAM 10 MG TABLET PO SCH (21:28)
[2017-10-18] MEDS: ATORVASTATIN 40 MG TABLET PO SCH (21:29)
[2017-10-18] MEDS: CYCLOBENZAPRINE 10 MG TABLET PO PRN (21:29)
[2017-10-19] MEDS: MORPHINE 4 MG/1 ML VIAL IV PRN ×4 (05:41→23:27)
[2017-10-19] MEDS: GABAPENTIN 300 MG CAPSULE PO SCH ×3 (06:01→21:48)
[2017-10-19] MEDS: LOSARTAN 25 MG TABLET PO SCH (09:12)
[2017-10-19] MEDS: PANTOPRAZOLE 40 MG TABLET PO SCH (09:12)
[2017-10-19] MEDS: CARVEDILOL 3.125 MG TABLET PO SCH ×2 (09:12→21:48)
[2017-10-19] MEDS: TOPIRAMATE 25 MG TABLET PO SCH ×2 (09:12→21:48)
[2017-10-19] MEDS: ASPIRIN 325 MG TABLET PO SCH (09:12)
[2017-10-19] MEDS: FERROUS SULFATE 325 MG TABLET PO SCH ×2 (09:12→21:48)
[2017-10-19] MEDS: CLOPIDOGREL 75 MG TABLET PO SCH (09:12)
[2017-10-19] MEDS: ERYTHROMYCIN 0.5% OPHT OINT 1 GM TUBE LEFT EYE SCH ×4 (09:13→21:48)
[2017-10-19] MEDS: POLYETHYLENE GLYCOL POWDER 17 GM PACK PO SCH (09:17)
[2017-10-19] MEDS: diphenhydrAMINE CAP 25 MG CAPSULE PO PRN ×2 (13:31→21:48)
[2017-10-19] MEDS: HYDROCORTISONE 0.5% CREAM 28.35 GM TUBE TOP PRN (21:44)
[2017-10-19] MEDS: CYCLOBENZAPRINE 10 MG TABLET PO PRN (21:48)
[2017-10-19] MEDS: ESCITALOPRAM 10 MG TABLET PO SCH (21:48)
[2017-10-19] MEDS: ATORVASTATIN 40 MG TABLET PO SCH (21:48)
[2017-10-20] MEDS: MORPHINE 4 MG/1 ML VIAL IV PRN ×4 (05:07→21:42)
[2017-10-20] MEDS: GABAPENTIN 300 MG CAPSULE PO SCH ×3 (05:29→21:42)
[2017-10-20] MEDS: TOPIRAMATE 25 MG TABLET PO SCH ×2 (09:19→21:40)
[2017-10-20] MEDS: CLOPIDOGREL 75 MG TABLET PO SCH (09:19)
[2017-10-20] MEDS: LOSARTAN 25 MG TABLET PO SCH (09:19)
[2017-10-20] MEDS: ASPIRIN 325 MG TABLET PO SCH (09:19)
[2017-10-20] MEDS: FERROUS SULFATE 325 MG TABLET PO SCH ×2 (09:21→21:40)
[2017-10-20] MEDS: CARVEDILOL 3.125 MG TABLET PO SCH ×2 (09:21→21:40)
[2017-10-20] MEDS: PANTOPRAZOLE 40 MG TABLET PO SCH (09:21)
[2017-10-20] MEDS: ERYTHROMYCIN 0.5% OPHT OINT 1 GM TUBE LEFT EYE SCH ×4 (09:22→21:40)
[2017-10-20] MEDS: POLYETHYLENE GLYCOL POWDER 17 GM PACK PO SCH (09:23)
[2017-10-20] MEDS ORDERED: SKIN HEALING OINT (AQUAPHOR) 50 GM TUBE TOP PRN (09:39)
[2017-10-20] MEDS ORDERED: CALAMINE LOTION 180 ML BOTTLE TOP PRN (09:42)
[2017-10-20] MEDS: diphenhydrAMINE CAP 25 MG CAPSULE PO PRN ×2 (18:06→23:40)
[2017-10-20] MEDS: ESCITALOPRAM 10 MG TABLET PO SCH (21:40)
[2017-10-20] MEDS: ATORVASTATIN 40 MG TABLET PO SCH (21:42)
[2017-10-20] MEDS: CYCLOBENZAPRINE 10 MG TABLET PO PRN (23:40)
[2017-10-21] MEDS: MORPHINE 4 MG/1 ML VIAL IV PRN (05:54)
[2017-10-21] MEDS: GABAPENTIN 300 MG CAPSULE PO SCH ×3 (05:54→21:53)
[2017-10-21] MEDS: POLYETHYLENE GLYCOL POWDER 17 GM PACK PO SCH (09:08)
[2017-10-21] MEDS: PANTOPRAZOLE 40 MG TABLET PO SCH (09:10)
[2017-10-21] MEDS: ASPIRIN 325 MG TABLET PO SCH (09:10)
[2017-10-21] MEDS: CLOPIDOGREL 75 MG TABLET PO SCH (09:10)
[2017-10-21] MEDS: CARVEDILOL 3.125 MG TABLET PO SCH ×2 (09:10→20:25)
[2017-10-21] MEDS: FERROUS SULFATE 325 MG TABLET PO SCH ×2 (09:10→20:25)
[2017-10-21] MEDS: TOPIRAMATE 25 MG TABLET PO SCH ×2 (09:10→20:25)
[2017-10-21] MEDS: LOSARTAN 25 MG TABLET PO SCH (09:10)
[2017-10-21] MEDS: ERYTHROMYCIN 0.5% OPHT OINT 1 GM TUBE LEFT EYE SCH ×4 (09:11→20:26)
[2017-10-21] MEDS: diphenhydrAMINE CAP 25 MG CAPSULE PO PRN ×2 (14:16→20:25)
[2017-10-21] MEDS: ESCITALOPRAM 10 MG TABLET PO SCH (20:25)
[2017-10-21] MEDS: ATORVASTATIN 40 MG TABLET PO SCH (20:25)
[2017-10-21] MEDS: CYCLOBENZAPRINE 10 MG TABLET PO PRN (21:53)
[2017-10-22] MEDS: GABAPENTIN 300 MG CAPSULE PO SCH ×3 (06:08→22:43)
[2017-10-22] MEDS: ASPIRIN 325 MG TABLET PO SCH (09:11)
[2017-10-22] MEDS: CARVEDILOL 3.125 MG TABLET PO SCH ×2 (09:11→21:20)
[2017-10-22] MEDS: LOSARTAN 25 MG TABLET PO SCH (09:11)
[2017-10-22] MEDS: TOPIRAMATE 25 MG TABLET PO SCH ×2 (09:11→21:20)
[2017-10-22] MEDS: CLOPIDOGREL 75 MG TABLET PO SCH (09:11)
[2017-10-22] MEDS: PANTOPRAZOLE 40 MG TABLET PO SCH (09:11)
[2017-10-22] MEDS: FERROUS SULFATE 325 MG TABLET PO SCH ×2 (09:11→21:20)
[2017-10-22] MEDS: ERYTHROMYCIN 0.5% OPHT OINT 1 GM TUBE LEFT EYE SCH ×5 (09:13→21:25)
[2017-10-22] MEDS: POLYETHYLENE GLYCOL POWDER 17 GM PACK PO SCH (09:14)
[2017-10-22] MEDS: diphenhydrAMINE CAP 25 MG CAPSULE PO PRN (21:20)
[2017-10-22] MEDS: CYCLOBENZAPRINE 10 MG TABLET PO PRN (21:20)
[2017-10-22] MEDS: ATORVASTATIN 40 MG TABLET PO SCH (21:20)
[2017-10-22] MEDS: ESCITALOPRAM 10 MG TABLET PO SCH (21:20)
[2017-10-23] MEDS: GABAPENTIN 300 MG CAPSULE PO SCH ×3 (06:55→21:19)
[2017-10-23] MEDS: ASPIRIN 325 MG TABLET PO SCH (09:10)
[2017-10-23] MEDS: POLYETHYLENE GLYCOL POWDER 17 GM PACK PO SCH (09:10)
[2017-10-23] MEDS: CLOPIDOGREL 75 MG TABLET PO SCH (09:11)
[2017-10-23] MEDS: FERROUS SULFATE 325 MG TABLET PO SCH ×2 (09:11→21:19)
[2017-10-23] MEDS: CARVEDILOL 3.125 MG TABLET PO SCH ×2 (09:11→21:19)
[2017-10-23] MEDS: TOPIRAMATE 25 MG TABLET PO SCH ×2 (09:11→21:19)
[2017-10-23] MEDS: PANTOPRAZOLE 40 MG TABLET PO SCH (09:11)
[2017-10-23] MEDS: ERYTHROMYCIN 0.5% OPHT OINT 1 GM TUBE LEFT EYE SCH ×4 (09:12→21:19)
[2017-10-23] MEDS: LOSARTAN 25 MG TABLET PO SCH (09:12)
[2017-10-23] MEDS: diphenhydrAMINE CAP 25 MG CAPSULE PO PRN ×2 (12:16→21:19)
[2017-10-23] MEDS: ATORVASTATIN 40 MG TABLET PO SCH (21:18)
[2017-10-23] MEDS: ESCITALOPRAM 10 MG TABLET PO SCH (21:19)
[2017-10-24] MEDS: GABAPENTIN 300 MG CAPSULE PO SCH ×3 (05:55→21:11)
[2017-10-24] MEDS ORDERED: DEXTROSE 50% 25 GM/50 ML VIAL IV PRN (10:01)
[2017-10-24] MEDS ORDERED: GLUCAGON 1 MG VIAL IM PRN (10:01)
[2017-10-24] MEDS: ERYTHROMYCIN 0.5% OPHT OINT 1 GM TUBE LEFT EYE SCH ×4 (10:18→21:11)
[2017-10-24] MEDS: POLYETHYLENE GLYCOL POWDER 17 GM PACK PO SCH (10:18)
[2017-10-24] MEDS: ASPIRIN 325 MG TABLET PO SCH (10:19)
[2017-10-24] MEDS: LOSARTAN 25 MG TABLET PO SCH (10:20)
[2017-10-24] MEDS: CLOPIDOGREL 75 MG TABLET PO SCH (10:20)
[2017-10-24] MEDS: CARVEDILOL 3.125 MG TABLET PO SCH ×2 (10:20→21:11)
[2017-10-24] MEDS: TOPIRAMATE 25 MG TABLET PO SCH ×2 (10:21→21:10)
[2017-10-24] MEDS: PANTOPRAZOLE 40 MG TABLET PO SCH (10:21)
[2017-10-24] MEDS: FOLIC ACID 1 MG TABLET PO SCH ×2 (11:35→21:11)
[2017-10-24] MEDS: FERROUS SULFATE 325 MG TABLET PO SCH ×4 (11:35→21:11)
[2017-10-24] MEDS: CYANOCOBALAMIN 1000 MCG/1 ML VIAL IM SCH (11:36)
[2017-10-24] MEDS: INSULIN LISPRO 100 UNIT/ML SUBCUT SCH ×3 (12:15→21:11)
[2017-10-24] MEDS: diphenhydrAMINE CAP 25 MG CAPSULE PO PRN ×2 (14:35→21:10)
[2017-10-24] MEDS: metFORMIN 500 MG TABLET PO SCH (16:39)
[2017-10-24] MEDS: ATORVASTATIN 40 MG TABLET PO SCH (21:10)
[2017-10-24] MEDS: ESCITALOPRAM 10 MG TABLET PO SCH (21:10)
[2017-10-25] MEDS: GABAPENTIN 300 MG CAPSULE PO SCH ×3 (05:43→21:03)
[2017-10-25 06:34] LABS: Basophils # 0.1 10*3/uL (0.0-0.2); Basophils % 0.6 % (0.0-0.8); Eosinophils # 0.4 10*3/uL (0.0-0.87); Hematocrit 33.5 VOL% (35.7-47.0); Hemoglobin 10.4 GM/DL (12.0-16.0); Immature Granulocytes % 0.7 %; Immature Granulocytes Absolute 0.06 #; Lymphocytes # 3.2 10*3/uL (1.4-4.0); Lymphocytes % 35.4 % (21.3-54.2); Mean Corpuscular Hemoglobin 27 PG (27-34); Mean Corpuscular Volume 85.7 FL (87-102); Mean Platelet Volume 11.2 FL (9.6-12.0); Monocytes # 0.7 10*3/uL (0.11-0.8); Monocytes % 8.2 % (1.7-12.7); Neutrophils # 4.6 10*3/uL (1.4-7.4); Neutrophils % 51.1 % (38.7-73.9); Platelet Count 271 T/CUMM (130-400); Red Blood Count 3.91 MC/CUMM (3.8-5.5); Red Cell Distribution Width 19.1 % (9.3-17.3)
[2017-10-25 06:59] LABS: Albumin 3.3 G/DL (3.4-5.0); Bilirubin,Total 0.4 MG/DL (0.2-1.0); Calcium 8.7 MG/DL (8.5-10.1); Osmolality,Calculated 282.1 MOS/KG (273-304); Potassium 3.7 MMOL/L (3.5-5.1); Total Protein 6.9 G/DL (6.4-8.3)
[2017-10-25] MEDS: INSULIN LISPRO 100 UNIT/ML SUBCUT SCH ×4 (08:40→21:02)
[2017-10-25] MEDS: metFORMIN 500 MG TABLET PO SCH ×2 (08:41→17:28)
[2017-10-25] MEDS: CARVEDILOL 3.125 MG TABLET PO SCH ×2 (08:41→21:04)
[2017-10-25] MEDS: LOSARTAN 25 MG TABLET PO SCH (08:41)
[2017-10-25] MEDS: ASPIRIN 325 MG TABLET PO SCH (08:41)
[2017-10-25] MEDS: CLOPIDOGREL 75 MG TABLET PO SCH (08:42)
[2017-10-25] MEDS: POLYETHYLENE GLYCOL POWDER 17 GM PACK PO SCH (08:42)
[2017-10-25] MEDS: PANTOPRAZOLE 40 MG TABLET PO SCH (08:42)
[2017-10-25] MEDS: FOLIC ACID 1 MG TABLET PO SCH ×2 (08:42→21:03)
[2017-10-25] MEDS: FERROUS SULFATE 325 MG TABLET PO SCH ×3 (08:42→21:04)
[2017-10-25] MEDS: CYANOCOBALAMIN 1000 MCG/1 ML VIAL IM SCH (08:43)
[2017-10-25] MEDS: TOPIRAMATE 25 MG TABLET PO SCH ×2 (08:43→21:03)
[2017-10-25] MEDS: ERYTHROMYCIN 0.5% OPHT OINT 1 GM TUBE LEFT EYE SCH ×4 (08:48→21:03)
[2017-10-25] MEDS: diphenhydrAMINE CAP 25 MG CAPSULE PO PRN ×2 (15:32→21:04)
[2017-10-25] MEDS: ESCITALOPRAM 10 MG TABLET PO SCH (21:03)
[2017-10-25] MEDS: ATORVASTATIN 40 MG TABLET PO SCH (21:03)
[2017-10-26] MEDS: GABAPENTIN 300 MG CAPSULE PO SCH (06:00)
[2017-10-26] MEDS: INSULIN LISPRO 100 UNIT/ML SUBCUT SCH ×2 (08:39→11:37)
[2017-10-26] MEDS ORDERED: CYANOCOBALAMIN 500 MCG TABLET PO SCH (09:00)
[2017-10-26] MEDS: metFORMIN 500 MG TABLET PO SCH (09:02)
[2017-10-26] MEDS: CLOPIDOGREL 75 MG TABLET PO SCH (09:03)
[2017-10-26] MEDS: LOSARTAN 25 MG TABLET PO SCH (09:03)
[2017-10-26] MEDS: PANTOPRAZOLE 40 MG TABLET PO SCH (09:03)
[2017-10-26] MEDS: TOPIRAMATE 25 MG TABLET PO SCH (09:03)
[2017-10-26] MEDS: ASPIRIN 325 MG TABLET PO SCH (09:03)
[2017-10-26] MEDS: FERROUS SULFATE 325 MG TABLET PO SCH (09:03)
[2017-10-26] MEDS: CARVEDILOL 3.125 MG TABLET PO SCH (09:03)
[2017-10-26] MEDS: FOLIC ACID 1 MG TABLET PO SCH (09:03)
[2017-10-26] MEDS: CYANOCOBALAMIN 1000 MCG/1 ML VIAL IM SCH (09:06)
[2017-10-26] MEDS: ERYTHROMYCIN 0.5% OPHT OINT 1 GM TUBE LEFT EYE SCH (09:09)
[2017-10-26] MEDS: POLYETHYLENE GLYCOL POWDER 17 GM PACK PO SCH (09:13)
[2017-10-26 12:14] VITALS: BP 108/87
== END 2017-10-26 11:55 | disposition home health service (06) | DRG 65 ==
LOC: EDUNIT# → EDBD → N.ED 20:23 → N.EDINP 23:41 → SUATTDRO 23:41 → N.ICU 10-05 00:04 → N.3E 10-06 14:48
PROVIDERS: ADMIT Internal Medicine; ATTEND Hospitalist